=== PATIENT | female | born 1985 | race Caucasian/White ===

== ENCOUNTER 2018-02-28 11:07 | Outpatient (CLI) | payer OTHER ==
[~2018-02-28] VITALS: Ht 157.5 cm; Wt 65.8 kg
[~2018-02-28 11:07] MED LIST: AURALGAN OTIC S14 ML OT; CEFTIN500 MG PO; GUIAFEN-PSE 10120 ML PO; KETO10TA2 PO; SYNTHROID88 MCG PO
== END 2018-02-28 11:20 | disposition home or self-care (01) ==
LOC: OFIC 805 11:07
DX: J31.0 Chronic rhinitis (principal); J34.2 Deviated nasal septum; J34.3 Hypertrophy of nasal turbinates; J01.80 Other acute sinusitis; R09.81 Nasal congestion; H66.92 Otitis media, unspecified, left ear

== ENCOUNTER 2018-06-16 21:53 | Emergency (ER) | payer OTHER ==
[~2018-06-16] VITALS: Ht 157.5 cm; Wt 63.5 kg
== END 2018-06-17 03:56 ==
LOC: ER 21:53
DX: O20.0 Threatened abortion (principal); Z34.81 Encounter for supervision of other normal pregnancy, first trimester

== ENCOUNTER 2018-06-17 19:51 | Emergency (ER) | payer OTHER ==
[~2018-06-17] VITALS: Ht 157.5 cm; Wt 63.5 kg
== END 2018-06-17 22:37 | disposition home or self-care (01) ==
LOC: ER 19:51
DX: O20.0 Threatened abortion (principal); Z34.81 Encounter for supervision of other normal pregnancy, first trimester

== ENCOUNTER 2018-06-20 14:17 | Outpatient (CLI) | payer OTHER | END 2018-06-20 14:36 | disposition home or self-care (01) | LOC: LAB 14:17 | DX: Z34.80 Encounter for supervision of other normal pregnancy, unspecified trimester (principal) ==

== ENCOUNTER 2018-06-22 14:44 | Outpatient (CLI) | payer OTHER | END 2018-06-22 18:03 | disposition home or self-care (01) | LOC: LAB 14:44 | DX: Z34.80 Encounter for supervision of other normal pregnancy, unspecified trimester (principal) ==

== ENCOUNTER 2018-08-31 06:15 | Day surgery (SDC) | payer OTHER | END 2018-08-31 11:25 | disposition home or self-care (01) | LOC: CIR.AMB 06:15 | DX: O34.32 Maternal care for cervical incompetence, second trimester (principal); Z3A.14 14 weeks gestation of pregnancy ==

== ENCOUNTER 2018-11-25 10:40 | Outpatient (CLI) | payer OTHER | END 2018-11-25 11:45 | disposition home or self-care (01) | LOC: NST 10:40 | DX: Z34.83 Encounter for supervision of other normal pregnancy, third trimester (principal) ==

== ENCOUNTER 2018-12-15 22:40 | Outpatient (CLI) | payer OTHER | END 2018-12-15 23:32 | disposition home or self-care (01) | LOC: OBS/DEL 22:40 | DX: O26.893 Other specified pregnancy related conditions, third trimester (principal); Z34.83 Encounter for supervision of other normal pregnancy, third trimester ==

== ENCOUNTER 2018-12-26 14:41 | Outpatient (CLI) | payer OTHER | END 2018-12-26 16:00 | disposition HB | LOC: NST 14:41 | DX: Z34.83 Encounter for supervision of other normal pregnancy, third trimester (principal) ==

== ENCOUNTER 2018-12-29 11:01 | Outpatient (CLI) | payer OTHER | END 2018-12-29 12:22 | disposition home or self-care (01) | LOC: NST 11:01 | DX: Z34.83 Encounter for supervision of other normal pregnancy, third trimester (principal) ==

== ENCOUNTER 2019-01-02 15:53 | Outpatient (CLI) | payer OTHER | END 2019-01-02 19:15 | disposition home or self-care (01) | LOC: NST 15:53 | DX: Z34.83 Encounter for supervision of other normal pregnancy, third trimester (principal) ==

== ENCOUNTER 2019-01-05 12:39 | Outpatient (CLI) | payer OTHER | END 2019-01-05 13:53 | disposition home or self-care (01) | LOC: NST 12:39 | DX: Z34.83 Encounter for supervision of other normal pregnancy, third trimester (principal) ==

== ENCOUNTER 2019-01-19 16:17 | Inpatient (IN) | payer OTHER ==
[~2019-01-19] VITALS: Ht 157.5 cm; Wt 65.8 kg
[2019-02-07] MEDS ORDERED: SYNTHROID100 MCG PO (11:57)
[2019-02-07] MEDS ORDERED: PRENATAL TABLE1 EAC1 PO (11:57)
== END 2019-02-09 11:07 | disposition home or self-care (01) | DRG 807 ==
LOC: LDR 01-27 14:30 → OB/GYN 02-07 11:21
PROVIDERS: ADMIT Obstetrics & Gynecology
PROC: 10E0XZZ Delivery of Products of Conception, External Approach (ICD-10-PCS; principal; 2019-02-07)
PROC: 3E033VJ Introduction of Other Hormone into Peripheral Vein, Percutaneous Approach (ICD-10-PCS; 2019-02-07)
PROC: 4A1HXCZ Monitoring of Products of Conception, Cardiac Rate, External Approach (ICD-10-PCS; 2019-02-07)
DX: O80 Encounter for full-term uncomplicated delivery (principal); Z37.0 Single live birth; Z3A.37 37 weeks gestation of pregnancy

== ENCOUNTER 2019-01-23 21:01 | Outpatient (CLI) | payer OTHER | END 2019-01-24 10:16 | disposition home or self-care (01) | LOC: OBS/DEL 21:01 | DX: O76 Abnormality in fetal heart rate and rhythm complicating labor and delivery (principal); O34.33 Maternal care for cervical incompetence, third trimester; Z34.83 Encounter for supervision of other normal pregnancy, third trimester ==

== ENCOUNTER 2019-01-31 18:04 | Outpatient (CLI) | payer OTHER | END 2019-01-31 20:43 | disposition home or self-care (01) | LOC: NST 18:04 | DX: Z34.83 Encounter for supervision of other normal pregnancy, third trimester (principal) ==

== ENCOUNTER 2019-03-18 15:03 | Emergency (ER) | payer OTHER ==
[~2019-03-18] VITALS: Ht 157.5 cm; Wt 57.6 kg
[~2019-03-18 15:03] MED LIST changes: +PRENATAL TABLE1 EAC1 PO; +SYNTHROID100 MCG PO
== END 2019-03-18 17:33 | disposition home or self-care (01) ==
LOC: ER 15:03
DX: T19.2XXA Foreign body in vulva and vagina, initial encounter (principal); W45.8XXA Other foreign body or object entering through skin, initial encounter; Y93.89 Activity, other specified; Y92.89 Other specified places as the place of occurrence of the external cause; Y99.8 Other external cause status

== ENCOUNTER 2023-09-16 10:05 | Outpatient (CLI) | payer OTHER ==
[2023-09-16 11:56] LABS: HEMATOCRIT 36.3 % (36.0-45.00); MEAN CELL VOLUME 89.4 fL (80.00-100.00); MEAN CORPUSCULAR HEMOGLOBIN 29.6 pg (27.00-32.0); MEAN CORPUSCULAR HGB CONC 33.1 g/dl (32.0-36.0); PLATELET COUNT 164 K/uL (150-450); RED BLOOD COUNT 4.06 M/uL (4.00-6.00); RED CELL DISTRIBUTION WIDTH 15.2 % (11.5-14.5)
[2023-09-16 12:50] LABS: % SATURACION 59.2 % (15-50); ALBUMIN 3.9 gm/dL (3.4-5.0); BILIRUBIN TOTAL 0.89 mg/dL (0.3-1.2); CHOL HDL RATIO 1.9 (0-5.0); CREATININE SERUM 0.7 mg/dL (0.55-1.02); FERRITIN 13.7 NG/ML (8-252); GFR 94.68; GLOBULINA 3.2 G/DL (2.4-3.5); POTASSIUM 4.38 mEq/L (3.5-5.1); T4 FREE 0.85 NG/ML (0.76-1.46); TOTAL PROTEIN 7.1 gm/dL (6.4-8.2); TSH 3.45 uIU/mL (0.358-3.74)
[2023-09-16 12:58] LABS: FOLIC ACID > 20.00 ng/ml (4.78-20)
[2023-09-16 14:37] LABS: MANUAL PLATELET COUNT 322
[2023-09-16 14:47] LABS: PLATELET ESTIMATE NORMAL (NORMAL)
[2023-09-18 16:11] LABS: hgb a 97.5 % (96.4-98.8); hgb a2 2.5 % (1.8-3.2); hgb f 0 % (0.0-2.0); hgb s 0 % (0.0)
[2023-09-20 16:06] LABS: g6pd quant 294 (127-427); rbc 4.02 x10E6/uL (3.77-5.28)
== END 2023-09-16 10:27 | disposition home or self-care (01) ==
LOC: LAB 10:05
PROVIDERS: ATTEND Internal Medicine Hematology & Oncology
DX: D50.8 Other iron deficiency anemias (principal); R79.9 Abnormal finding of blood chemistry, unspecified; I10 Essential (primary) hypertension; R74.02 Elevation of levels of lactic acid dehydrogenase [LDH]; K76.89 Other specified diseases of liver; D63.8 Anemia in other chronic diseases classified elsewhere; D51.1 Vitamin B12 deficiency anemia due to selective vitamin B12 malabsorption with proteinuria; E03.8 Other specified hypothyroidism; E06.3 Autoimmune thyroiditis; D50.1 Sideropenic dysphagia; E78.2 Mixed hyperlipidemia; D53.9 Nutritional anemia, unspecified; N39.0 Urinary tract infection, site not specified; E04.9 Nontoxic goiter, unspecified; D03.9 Melanoma in situ, unspecified; K76.2 Central hemorrhagic necrosis of liver

== ENCOUNTER → 2024-07-14 08:24 | Outpatient (CLI) | payer OTHER ==
[2024-07-14 09:27] LABS: HEMATOCRIT 34.7 % (36.0-45.00); HEMOGLOBIN 11.6 g/dL (12.0-15.00); MEAN CELL VOLUME 87.1 fL (80.00-100.00); MEAN CORPUSCULAR HEMOGLOBIN 29.2 pg (27.00-32.0); MEAN CORPUSCULAR HGB CONC 33.5 g/dl (32.0-36.0); PLATELET COUNT 155 K/uL (150-450); RED BLOOD COUNT 3.98 M/uL (4.00-6.00); RED CELL DISTRIBUTION WIDTH 13.8 % (11.5-14.5)
[2024-07-14 09:38] LABS: INR 1.06; PROTHROMBIN TIME 11.5 SECONDS (9.0-11.5)
[2024-07-14 09:43] LABS: PT 50:50 10.7 SECONDS (9.7-11.4); PTT 50:50 26.8 SECONDS (22.4-33.0)
[2024-07-14 09:54] LABS: COL EPI 151 SECONDS (82-175)
[2024-07-14 10:24] LABS: MANUAL PLATELET COUNT 352
[2024-07-14 10:25] LABS: PLATELET ESTIMATE NORMAL (NORMAL)
[2024-07-14 10:56] LABS: ALBUMIN 4.1 gm/dL (3.4-5.0); BILIRUBIN TOTAL 0.63 mg/dL (0.3-1.2); CALCIUM 8.9 mg/dL (8.5-10.1); CREATININE SERUM 0.79 mg/dL (0.55-1.02); GFR 82.35; POTASSIUM 4.08 mEq/L (3.5-5.1); TOTAL PROTEIN 7.1 gm/dL (6.4-8.2)
== END | disposition home or self-care (01) ==
LOC: LAB 08:24
PROVIDERS: ATTEND Internal Medicine Hematology & Oncology
DX: D50.8 Other iron deficiency anemias (principal); E03.8 Other specified hypothyroidism; N92.0 Excessive and frequent menstruation with regular cycle

== ENCOUNTER 2025-01-17 05:55 | Day surgery (SDC) | payer OTHER ==
[2025-01-11 10:35] LABS: BASO % 0.6 % (0.1-1.2); EOS # 0.03 (0.04-0.54); EOS % 0.9 % (0.7-7.0); HEMATOCRIT 31.8 % (34.1-44.9); LYMPH # 1.38 (1.18-3.74); LYMPH % 41.9 % (19.3-53.1); MEAN CORPUSCULAR HEMOGLOBIN 27.5 pg (25.6-32.2); MONO # 0.28 (0.24-0.82); MONO % 8.5 % (4.7-12.5); NEUT # 1.58 (1.56-6.13); NEUT % 48.1 % (34.0-71.1); PLATELET COUNT 182 K/uL (163-369); RED BLOOD COUNT 3.63 M/uL (3.93-5.22); RED CELL DISTRIBUTION WIDTH 13.9 % (11.6-14.4)
[2025-01-11 10:59] LABS: INR 1.01; PARTIAL THROMBOPLASTIN TIME 28.3 SECONDS (22.0-34.0)
[2025-01-11 11:53] LABS: BILIRUBIN TOTAL 0.32 mg/dL (0.3-1.2); CREATININE SERUM 0.75 mg/dL (0.55-1.02); GFR 86.95; GLOBULINA 3.5 G/DL (2.4-3.5); POTASSIUM 4.25 mEq/L (3.5-5.1); TOTAL PROTEIN 7.5 gm/dL (6.4-8.2)
[~2025-01-17 05:55] MED LIST changes: +DERMOPLAST FIRS78 GM
[2025-01-17] MEDS ORDERED: DESMOPRESSIN ACETATE 4 MCG/ML AMPUL IV ONE (08:30)
[2025-01-17] MEDS ORDERED: POVIDONE-IODINE 118 ML BOTT TOP ONE (08:38)
[2025-01-17] MEDS ORDERED: VISTASEAL DUAL APPICATOR 1 EACH APPL TOP ONE (10:05)
[2025-01-17] MEDS ORDERED: THROMBIN,HU/FIBRINOGEN/CALCIUM 4 ML SYRINGE TOP ONE (10:05)
[2025-01-17] MEDS ORDERED: KETOROLAC TROMETHAMINE 30 MG VIAL ONE (12:11)
[2025-01-17] MEDS ORDERED: KETOROLAC TROMETHAMINE 30 MG VIAL IV ONE (12:15)
[2025-01-17] MEDS ORDERED: MORPHINE SULFATE 4 MG/ML VIAL IV PRN (13:15)
[2025-01-17] MEDS ORDERED: PROMETHAZINE HCL 50 MG/ML AMPUL IM ONE (13:15)
== END 2025-01-17 14:25 | disposition home or self-care (01) ==
LOC: CIR.AMB 05:55
PROVIDERS: ATTEND Obstetrics & Gynecology
DX: N83.292 Other ovarian cyst, left side (principal); N83.6 Hematosalpinx; R10.2 Pelvic and perineal pain; Z91.018 Allergy to other foods